=== PATIENT | female | born 2005 | race American Indian/Alaskan Native ===

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

== ENCOUNTER 2023-03-23 10:52 | Emergency (ER) | payer OTHER ==
[~2023-03-23] VITALS: Ht 165.1 cm; Wt 68.0 kg
[~2023-03-23 10:52] MED LIST changes: +Veetids 500500 MG PO
[2023-03-23] MEDS ORDERED: Bactrim Ds Tab1 EACH PO (12:47)
[2023-03-23 13:05] VITALS: BP 108/65
== END 2023-03-23 13:08 | disposition home or self-care (01) ==
LOC: ER 10:52
DX: L02.31 Cutaneous abscess of buttock (principal); F17.290 Nicotine dependence, other tobacco product, uncomplicated
CPT/HCPCS: 99282

== ENCOUNTER 2024-04-18 20:59 | Emergency (ER) | payer OTHER ==
[~2024-04-18] VITALS: Ht 165.1 cm; Wt 65.8 kg
[~2024-04-18 20:59] MED LIST changes: +Bactrim Ds Tab1 EACH PO
[2024-04-18 22:07] LABS: Source, Urine Clean Catch
[2024-04-18 22:15] LABS: Bilirubin, Urine Neg (Neg); Blood, Urine Neg (Neg); Glucose Qualitative, Urine Neg (Neg); Ketones, Urine Neg (Neg); Leukocyte Esterase, Urine 2+ (Neg); Nitrite, Urine Neg (Neg); Protein, Urine 2+ (Neg); Urobilinogen, Urine NORM (Normal)
[2024-04-18 22:19] LABS: Appearance, Urine Cloudy (Clear); Color, Urine Yellow (P-Yellow)
[2024-04-18 22:23] LABS: Amorphous Heavy (0-Heavy); Bacteria Many /hpf; Red Blood Cells, Urine Not Seen /hpf (0-2); Squamous Epithelial Cells Mod /hpf (Few)
[2024-04-18 23:26] VITALS: BP 108/70
[2024-04-18 23:40] LABS: Bacterial Vaginosis PCR Negative (NEGATIVE); Candida glabrata-krusei, PCR NOT DETECTED (NOT DETECT)
[2024-04-19 00:02] LABS: Candida Group, PCR DETECTED (NOT DETECT)
[2024-04-19 00:17] LABS: Chlamydia Trachomatis Cervix NOT DETECTED (NOT DETECT); Neisseria Gonorrhoea Cervix NOT DETECTED (NOT DETECT)
[2024-04-19] MEDS ORDERED: Fluconazole 100 MG Tab PO ONE (00:30)
[2024-04-19] MEDS ORDERED: Cephalexin Monohydrate 500 MG Cap PO ONE (00:30)
[2024-04-19] MEDS ORDERED: Diflucan150 MG PO (00:37)
[2024-04-19] MEDS ORDERED: CEPH500 PO (00:37)
== END 2024-04-19 00:51 | disposition home or self-care (01) ==
LOC: ER 20:59
PROVIDERS: Emergency Medicine; Student in an Organized Health Care Education/Training Program
DX: B37.31 Acute candidiasis of vulva and vagina (principal); N39.0 Urinary tract infection, site not specified; F17.290 Nicotine dependence, other tobacco product, uncomplicated
CPT/HCPCS: 81001; 81025; 87086; 87147; 87481; 87491; 87591; 87661; 87801; 99283; A9270